=== PATIENT | male | born 1980 | race Caucasian/White ===

== ENCOUNTER 2017-09-02 16:56 | Emergency (ER) | payer MEDICAID ==
[~2017-09-02] VITALS: Ht 182.9 cm; Wt 105.9 kg
[~2017-09-02 16:56] MED LIST: DOXYCYCLINE HY100 M2 PO; HYDROCODON-ACE1 EAC7 PO; KEFLEX500 MG PO; METAMUCIL FIB1 WAFER PO; MIRALAX17 GM PO; PEPCID40 MG PO
[2017-09-02 17:01] VITALS: Ht 182.9 cm; Wt 105.9 kg
[2017-09-02] MEDS ORDERED: TORADOL10 MG PO (22:54)
[2017-09-03 01:58] VITALS: BP 123/77
== END 2017-09-02 23:07 | disposition home or self-care (01) ==
LOC: D.ER 16:56
DX: S01.112A Laceration without foreign body of left eyelid and periocular area, initial encounter (principal); W22.8XXA Striking against or struck by other objects, initial encounter; Y93.89 Activity, other specified; Y92.89 Other specified places as the place of occurrence of the external cause